=== PATIENT | male | born 1970 | race Caucasian/White ===

== ENCOUNTER 2017-05-28 17:17 | Emergency (ER) | payer BC ==
[2017-05-28] MEDS ORDERED: Ibuprofen TAB* 400 MG PO ONE (18:54)
--- NOTE | 2017-05-28 19:01 | ED ---
Lower Extremity - HPI Summary HPI Summary: 46 male presents with complaints of left knee pain after a fall that he sustained approximately 2 hours ago. Patient states he was walking and stepped wrong twisting his right ankle and causing him to fall and land on his left knee. States it was grass that he landed on. Directly after he had tremendous pain in his left knee and it was difficult for him to walk. Bending his knee makes the pain worse. He states it is fine when he is sitting and with his leg straight. Denies any other injuries, did not hit his head. No other complaints. Is able to bear weight. Denies numbness/tingling. Previous knee injury was years ago when he had surgery on a partially torn medial meniscus. PMHx significant for HTN. He is out of town visiting friends and was out hiking. - History of Current Complaint Chief Complaint: EDExtremityLower Stated Complaint: LT KNEE PAIN Time Seen by Provider: 05/28/17 17:50 Hx Obtained From: Patient Mechanism Of Injury: Fall From A Standing Position Onset of Pain: Immediate Onset/Duration: Hours - 2 Severity Initially: Severe Severity Currently: Moderate Pain Intensity: 9 Pain Scale Used: 0-10 Numeric Timing: Constant - with bending or movement Location: Is Discrete @ - left anterior knee Character Of Pain: Sharp, Aching, Throbbing Associated Signs And Symptoms: Positive: Bruising Aggravating Factor(s): Standing, Movement - bending Alleviating Factor(s): Rest Able to Bear Weight: Yes PMH/Surg Hx/FS Hx/Imm Hx Endocrine/Hematology History: Denies: Hx Diabetes Cardiovascular History: Reports: Hx Hypertension Respiratory History: Denies: Hx Asthma - Surgical History Surgery Procedure, Year, and Place: medial meniscus repair - Immunization History Immunizations Up to Date: Yes Infectious Disease History: No Infectious Disease History: Denies: Traveled Outside the [place] in Last 30 Days - Family History Known Family History: Positive: None - Social History Alcohol Use: None Substance Use Type: Reports: None Smoking Status (MU): Never Smoked Tobacco Review of Systems Constitutional: Negative Cardiovascular: Negative Respiratory: Negative Positive: Arthralgia, Myalgia, Decreased ROM - left knee Positive: Bruising - minimal Neurological: Negative All Other Systems Reviewed And Are Negative: Yes Physical Exam Triage Information Reviewed: Yes Vital Signs On Initial Exam: Initial Vitals Temp Pulse Resp BP Pulse Ox 98.5 F 97 22 165/99 99 05/28/17 17:20 05/28/17 17:20 05/28/17 17:20 05/28/17 17:20 05/28/17 17:20 Vital Signs Reviewed: Yes Appearance: Positive: Well-Appearing, Well-Nourished, Pain Distress - mild when moving Skin: Positive: Warm, Skin Color Reflects Adequate Perfusion, Dry. Negative: Numb, Tender, Cyanosis @ Head/Face: Positive: Normal Head/Face Inspection Eyes: Positive: Normal Neck: Positive: Supple, Nontender Respiratory/Lung Sounds: Positive: Clear to Auscultation, Breath Sounds Present. Negative: Rales, Rhonchi, Stridor, Wheezes Cardiovascular: Positive: Normal, RRR, Pulses are Symmetrical in both Upper and Lower Extremities - 2+ pedal and radial b/l. Negative: Murmur, Rub Musculoskeletal: Positive: Limited @ - left knee with flexion, is able to extend with minimal to no pain. some flexion ~30 degrees however does cause pain in anterior knee over patellar tendon area, Pain @ - anterior knee, Other - rest of MSK exam normal, no other injuries. Negative: Interruption @, Edema Left, Edema Right Neurological: Positive: Normal, Sensory/Motor Intact - sensation normal and intact, Alert, Oriented to Person Place, Time, CN Intact II-III, Reflexes Intact - not assess on left patella due to injury, NV Bundle Intact Distally, Abnormal Gait - able to however limping and favoring right side due to pain Psychiatric: Positive: Normal AVPU Assessment: Alert - Ismael Coma Scale Best Eye Response: 4 - Spontaneous Best Motor Response: 6 - Obeys Commands Best Verbal Response: 5 - Oriented Diagnostics - Vital Signs Vital Signs Temp Pulse Resp BP Pulse Ox 05/28/17 17:22 98.5 F 102 22 165/99 97 05/28/17 17:20 98.5 F 97 22 165/99 99 - Laboratory Lab Statement: Any lab studies that have been ordered have been reviewed, and results considered in the medical decision making process. - Radiology left knee Xray Interpretation: No Acute Changes - Osteoarthritis. Accurate grading would require a weightbearing view. No traumatic injury evident. Radiology Interpretation Completed By: Radiologist Lower Extremity Course/Dx - Course Course Of Treatment: x-ray was obtained and negative for fracture. Given another dose of ibuprofen for pain/inflammation. Immobilzer and crutches. Appears to possibly be a ligamentous injury and follow up with orthopedics for further imaging is recommended. No other concerns at this time. Aware of worsening signs and symptoms to watch out for. Follow up ortho and PCP. RICE and ibuprofen. - Diagnoses Differential Diagnosis/HQI/PQRI: Positive: Arthritis, Contusion, Dislocation, Fracture (Closed), Sprain, Strain, Tendonitis Provider Diagnoses: Left knee injury, Left anterior knee pain Discharge - Discharge Plan Condition: Stable Disposition: HOME Patient Education Materials: Knee Immobilizer (ED), Knee Pain (ED) Referrals: Porfirio Gamez MD [Medical Doctor] - Non Staff,Doctor [Primary Care Provider] - Additional Instructions: Continue taking Advil for pain and inflammation, with food. Rest, ice multiple times daily and use knee brace and crutches. Elevate your leg to avoid and help with swelling. Call and make an appointment with orthopedics for further imaging and evaluation , especially if symptoms persist. If new symptoms develop or symptoms worsen please seek medical attention promptly. Follow up with PCP.
--- NOTE | 2017-05-28 19:32 | RAD ---
Indication: LEFT knee pain post multiple falls. Pain with flexion. Comparison: No relevant prior exams available on the [facility] for comparison. Technique: LEFT knee: AP, tunnel, lateral, sunrise views. Report: Only trace fluid at the suprapatellar bursa. No fracture evident. Normal articular alignment. Tricompartmental osteophytosis without significant joint space narrowing although assessment limited without a weightbearing view. Small bone island at the medial proximal metaphysis of the tibia. Unremarkable soft tissue contours. IMPRESSION: Osteoarthritis. Accurate grading would require a weightbearing view. No traumatic injury evident.
[2017-05-28 19:57] VITALS: BP 143/65
== END 2017-05-28 19:52 | disposition home or self-care (01) ==
LOC: ED 17:17
DX: S89.92XA Unspecified injury of left lower leg, initial encounter (principal); M25.562 Pain in left knee; W19.XXXA Unspecified fall, initial encounter; Y93.9 Activity, unspecified; Y92.9 Unspecified place or not applicable
CPT/HCPCS: 99282